=== PATIENT | female | born 1980 | race Two or more races ===

== ENCOUNTER 2017-09-09 08:07 | Outpatient (CLI) | payer OTHER | END 2017-09-09 08:11 | disposition home or self-care (01) | LOC: SONOGRAMA 08:07 → MAMO-SONO 08:15 | DX: E04.1 Nontoxic single thyroid nodule (principal) ==

== ENCOUNTER 2017-09-12 07:28 | Outpatient (CLI) | payer OTHER | END 2017-09-12 07:31 | disposition home or self-care (01) | LOC: SONOGRAMA 07:28 | DX: E04.1 Nontoxic single thyroid nodule (principal) ==

== ENCOUNTER 2018-08-10 22:04 | Inpatient (IN) | payer OTHER ==
[~2018-08-10] VITALS: Ht 172.7 cm; Wt 88.5 kg
[2018-08-12] MEDS ORDERED: OBSTETRIX DHA1 EACH PO (11:43)
[2018-08-12] MEDS ORDERED: SYNTHROID50 MCG PO (11:43)
== END 2018-08-13 10:16 | disposition home or self-care (01) | DRG 833 ==
LOC: OB/GYN 22:04 → LDR 22:04 → OB/GYN 08-11 10:11
PROVIDERS: ADMIT Obstetrics & Gynecology Maternal & Fetal Medicine
PROC: 3E0F7GC Introduction of Other Therapeutic Substance into Respiratory Tract, Via Natural or Artificial Opening (ICD-10-PCS; principal; 2018-08-10)
PROC: 4A1HXCZ Monitoring of Products of Conception, Cardiac Rate, External Approach (ICD-10-PCS; 2018-08-10)
DX: O26.893 Other specified pregnancy related conditions, third trimester (principal); J10.1 Influenza due to other identified influenza virus with other respiratory manifestations; Z34.03 Encounter for supervision of normal first pregnancy, third trimester

== ENCOUNTER → 2018-08-10 | Emergency (ER) | payer OTHER ==
[~2018-08-10] VITALS: Ht 172.7 cm; Wt 88.5 kg
[~2018-08-10] MED LIST: OBSTETRIX DHA1 EACH PO; SYNTHROID50 MCG PO
== END | disposition home or self-care (01) ==
LOC: ER 20:27
DX: O26.893 Other specified pregnancy related conditions, third trimester (principal); R50.9 Fever, unspecified

== ENCOUNTER 2018-09-29 10:00 | Inpatient (IN) | payer OTHER ==
[~2018-09-29] VITALS: Ht 172.7 cm; Wt 95.3 kg
[2018-10-14] MEDS ORDERED: IRON325 MG PO (18:21)
== END 2018-10-17 12:30 | DRG 807 ==
LOC: LDR 10-14 10:00 → OB/GYN 10-15 21:10
PROVIDERS: ADMIT Obstetrics & Gynecology Maternal & Fetal Medicine
PROC: 3E0P7VZ Introduction of Hormone into Female Reproductive, Via Natural or Artificial Opening (ICD-10-PCS; 2018-10-14)
PROC: 4A1HXCZ Monitoring of Products of Conception, Cardiac Rate, External Approach (ICD-10-PCS; 2018-10-14)
PROC: 10E0XZZ Delivery of Products of Conception, External Approach (ICD-10-PCS; principal; 2018-10-15)
PROC: 0UQGXZZ Repair Vagina, External Approach (ICD-10-PCS; 2018-10-15)
PROC: 3E033VJ Introduction of Other Hormone into Peripheral Vein, Percutaneous Approach (ICD-10-PCS; 2018-10-15)
DX: O71.4 Obstetric high vaginal laceration alone (principal); Z37.0 Single live birth; Z3A.40 40 weeks gestation of pregnancy

== ENCOUNTER 2018-09-30 11:57 | Outpatient (CLI) | payer OTHER | END 2018-09-30 12:56 | disposition home or self-care (01) | LOC: NST 11:57 | DX: Z34.83 Encounter for supervision of other normal pregnancy, third trimester (principal) ==

== ENCOUNTER 2018-10-10 10:32 | Outpatient (CLI) | payer OTHER | END 2018-10-10 11:36 | disposition home or self-care (01) | LOC: NST 10:32 | DX: Z34.83 Encounter for supervision of other normal pregnancy, third trimester (principal) ==

== ENCOUNTER 2018-10-13 13:55 | Outpatient (CLI) | payer OTHER ==
[2018-10-14] MEDS ORDERED: IRON325 MG PO (18:21)
== END 2018-10-13 15:50 | disposition home or self-care (01) ==
LOC: NST 13:55
DX: Z34.83 Encounter for supervision of other normal pregnancy, third trimester (principal)

== ENCOUNTER → 2019-07-21 14:07 | Outpatient (CLI) | payer OTHER | END | disposition home or self-care (01) | LOC: LAB 14:07 | DX: R05 Cough (principal); J11.1 Influenza due to unidentified influenza virus with other respiratory manifestations ==

== ENCOUNTER → 2019-07-21 | Outpatient (CLI) | payer OTHER ==
[~2019-07-21] MED LIST changes: +IRON325 MG PO
== END | disposition home or self-care (01) ==
LOC: MAMO-SONO 11:47
DX: Z12.31 Encounter for screening mammogram for malignant neoplasm of breast (principal); Z87.898 Personal history of other specified conditions; E04.1 Nontoxic single thyroid nodule; R05 Cough; J06.9 Acute upper respiratory infection, unspecified; N60.11 Diffuse cystic mastopathy of right breast; N60.12 Diffuse cystic mastopathy of left breast

== ENCOUNTER 2022-03-01 15:47 | Outpatient (CLI) | payer OTHER | END 2022-03-01 15:51 | disposition home or self-care (01) | LOC: MAMO-SONO 15:47 | PROVIDERS: ATTEND Internal Medicine Endocrinology, Diabetes & Metabolism | DX: Z12.31 Encounter for screening mammogram for malignant neoplasm of breast (principal); N64.2 Atrophy of breast; N61.1 Abscess of the breast and nipple; E04.1 Nontoxic single thyroid nodule ==

== ENCOUNTER → 2023-02-07 | Outpatient (CLI) | payer OTHER | END | disposition home or self-care (01) | LOC: RAD 09:06 | DX: R05.8 Other specified cough (principal); J20.8 Acute bronchitis due to other specified organisms ==

== ENCOUNTER 2023-08-08 15:20 | Outpatient (CLI) | payer OTHER | END 2023-08-08 15:26 | disposition home or self-care (01) | LOC: MAMO-SONO 15:20 | PROVIDERS: ATTEND Obstetrics & Gynecology | DX: N60.11 Diffuse cystic mastopathy of right breast (principal) ==